=== PATIENT | male | born 1950 | race Caucasian/White ===

== ENCOUNTER 2020-01-28 10:07 | Emergency (ER) | payer OTHER ==
[~2020-01-28] VITALS: Ht 182.9 cm; Wt 131.5 kg
[~2020-01-28 10:07] MED LIST: ASPI81CH PO; ATOR40TA PO; Amoxicillin500 MG PO; CLOP75 PO; HYDACE10B PO; LISI20 PO; LISINOPRIL; MEDICAL MARAJUANA; METO25ER PO; Norco 5-325 Ta1 EACH PO; SIMV40 PO
[2020-01-28] MEDS ORDERED: CARV25 PO (11:25)
[2020-01-28] MEDS ORDERED: CHLO25B PO (11:25)
[2020-01-28] MEDS ORDERED: LOSA50 PO ×2 (11:26)
[2020-01-28] MEDS ORDERED: CENTRUM SILVER1 EAC2 PO (11:27)
[2020-01-28] MEDS ORDERED: Coreg12.5 MG PO (11:34)
== END 2020-01-28 11:56 | disposition home or self-care (01) ==
LOC: ER 10:07
DX: R03.0 Elevated blood-pressure reading, without diagnosis of hypertension (principal); I25.2 Old myocardial infarction; E78.00 Pure hypercholesterolemia, unspecified; Z79.82 Long term (current) use of aspirin; Z79.899 Other long term (current) drug therapy; Z87.891 Personal history of nicotine dependence
CPT/HCPCS: 93005; 93010; 99284-25